=== PATIENT | male | born 1955 | race Caucasian/White ===

== ENCOUNTER 2017-05-12 13:58 | Emergency (ER) | payer BC ==
--- NOTE | 2017-05-12 15:22 | UC ---
Complaint Male HPI - HPI Summary HPI Summary: 61 yo WM h/o recent robotic radiacal prostectectomy per pt on 03/28 c/o ongoing perineal and penile yeast infection, was prescribed Nystatin cream by his doctor 2 days ago but the redness and burning is worsening with clear skin drainage. 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 Denies acute urinary sx - History of Current Complaint Chief Complaint: UCGU Stated Complaint: PERSONAL Time Seen by Provider: 05/12/17 14:55 Hx Obtained From: Patient Onset/Duration: Sudden Onset, Lasting Days Timing: Lasting Days Severity Initially: Moderate Severity Currently: Moderate Pain Intensity: 0 Location: Scrotum Character: Burning Associated Signs And Symptoms: Positive: Negative - Allergies/Home Medications Allergies/Adverse Reactions: Allergies Allergy/AdvReac Type Severity Reaction Status Date / Time No Known Allergies Allergy Verified 05/12/17 14:30 PMH/Surg Hx/FS Hx/Imm Hx Previously Healthy: Yes GI/ History: Other - prostate ca s/p prostectomy Other GI/ History: prostate ca - Surgical History Surgical History: Yes Surgery Procedure, Year, and Place: Prostatectomy, laser procedure - Social History Alcohol Use: None Substance Use Type: None Smoking Status (MU): Never Smoked Tobacco Review of Systems Constitutional: Negative Skin: Other - penile yeast infection Eyes: Negative ENT: Negative Respiratory: Negative Cardiovascular: Negative Gastrointestinal: Negative Genitourinary: Negative Motor: Negative Neurovascular: Negative Musculoskeletal: Negative Neurological: Negative Psychological: Negative All Other Systems Reviewed And Are Negative: Yes Physical Exam Triage Information Reviewed: Yes Appearance: No Pain Distress Vital Signs: Initial Vital Signs Temp 37.0 C 05/12/17 14:24 Pulse 82 05/12/17 14:24 Resp 14 05/12/17 14:24 BP 128/83 05/12/17 14:24 Pulse Ox 96 05/12/17 14:24 Eye Exam: Normal ENT Exam: Normal Dental Exam: Normal Neck exam: Normal Neck: Positive: 1 Respiratory Exam: Normal Cardiovascular Exam: Normal Abdominal Exam: Normal Musculoskeletal Exam: Normal Neurological Exam: Normal Psychological Exam: Normal Skin Exam: Normal Skin: Positive: significant lesion(s) - erythematous clear draining candidal lesions on penis, scrotum and upper thigh adjacent to scrotum, appears denuded and raw Complaint Male Course/Dx - Course Course Of Treatment: penile and scrotal candidiasis with possible bacterial skin infection - Differential Dx/Diagnosis Provider Diagnoses: penile and perineal candidiasis Discharge - Discharge Plan Condition: Stable Disposition: HOME Prescriptions: Cephalexin CAP* [Keflex CAP*] 500 mg PO TID 7 Days #21 cap Fluconazole 100 MG TAB* [Diflucan 100 MG TAB*] 100 mg PO DAILY 3 Days #3 tab Patient Education Materials: Skin Yeast Infection (ED) Referrals: Lara Jett MD [Primary Care Provider] - Additional Instructions: Keep area dry,take medication as directed and Follow up with your urologist if symptoms worsen
== END 2017-05-12 15:30 | disposition home or self-care (01) ==
LOC: UCCORT 13:58
DX: B37.49 Other urogenital candidiasis (principal); B37.2 Candidiasis of skin and nail; Z85.46 Personal history of malignant neoplasm of prostate
CPT/HCPCS: 99202; G0463